=== PATIENT | female | born 1975 | race Caucasian/White ===

== ENCOUNTER 2022-01-13 00:23 | Day surgery (SDC) | payer OTHER, SELFPAY ==
[2022-01-01 10:58] VITALS: BMI 32.8
[2022-01-01 11:17] VITALS: BMI 32.8
--- NOTE | 2022-01-08 14:43 | PM.HPGS ---
History of Present Illness History of Present Illness Consent: Risks, benefits, and alternatives have been discussed and questions answered. Patient agrees to proceed with procedure. Chief complaint: colitis Narrative: Suma Cannon is a 46 year old female was referred because of diarrhea and abdominal pain and abnormal CT scan. She was recently seen in emergency room were she had presented because of right lower quadrant pain and diarrhea. A CT scan showed diffuse colitis throughout the colon. her symptoms had come on abruptly in early October. She still has loose stools whenever she has a bowel movement which could be once every couple days or even 3 or 4 times in 1 day. She denies seeing blood her stools. Review of Systems Review of Systems: All systems reviewed & are unremarkable except as noted in HPI and below PMFSH Past Medical History Medical History HTN (hypertension) Obesity Social History Social History Drinks per week: 7 Substance use: never Substance use type: does not use Living arrangements: with family Meds Home Medications and Allergies Home Medications Medication Instructions Recorded Confirmed Type citalopram 20 mg tablet 20 mg PO DAILY 01/01/22 01/13/22 History lisinopril 20 mg tablet 20 mg PO DAILY 01/01/22 01/13/22 History Allergies Allergy/AdvReac Type Severity Reaction Status Date / Time amoxicillin Allergy Intermediate Hives Verified 01/13/22 08:19 Exam Const: General: alert Orientation/consciousness: patient oriented x3 Resp: Auscultation: clear to auscultation bilaterally Cardio: Rhythm: regular rhythm GI: GI Palp: Yes Soft to palpation and No Tenderness to palpation present (GI) Neuro: General: patient oriented x3 Assessment and Plan Assessment and plan (1) Chronic diarrhea: Code(s): K52.9 - Noninfective gastroenteritis and colitis, unspecified Status: Acute Assessment and Plan: Colonoscopy with possible biopsy or polypectomy or cautery or injection of substances.
--- NOTE | 2022-01-11 11:28 | WPDANESEPPF ---
Anes - Initial Pre Proc Eval Procedure: Operation Date: 01/13/22 09:30 Proposed Procedures p Colonoscopy - Honorio Ivan MD Date/Time: 01/11/22 11:28 Surgeon: Honorio Ivan MD Pre Op Diagnosis: colitis Patient Data Age: 46 Gender: F Height: 1.57 m Weight: 81.6 kg Allergies Allergy/AdvReac Type Severity Reaction Status Date / Time amoxicillin Allergy Verified 02/04/11 12:55 Home Medications Medication Instructions Recorded Confirmed Type citalopram 20 mg tablet 20 mg PO DAILY 01/01/22 01/01/22 History lisinopril 20 mg tablet 20 mg PO DAILY 01/01/22 01/01/22 History Patient hx anesthesia problems: none Family hx anesthesia problems: none Results Review: All pre-operative results and documents have been reviewed as part of the pre-operative evaluation. [facility] Past Medical History Medical History (Updated 01/11/22 @ 11:28 by Isaac Bonilla MD) HTN (hypertension) Obesity Social History Social History Drinks per week: 7 Substance use: never Substance use type: does not use Living arrangements: with family Anes - Eval Final PreProcedure Day of Procedure 01/11/22 11:28 Patient weight: obese Heart: regular rate and rhythm Lungs: clear to auscultation and normal air movement Airway: Mallampati scale class II Neurological: alert and oriented Last oral intake: >/= 8 hours ASA classification: III Emergent: no Anesthetic plan: proceed Anesthesia type and monitoring: general GIVS Results Review: All pre-operative results and documents have been reviewed as part of the pre-operative evaluation. Informed Consent: The patient's anesthetic plan and its attendant risks and benefits were discussed with the patient/family/POA. Questions were solicited and answers provided to the satisfaction of the patient/family/POA.
[2022-01-13 08:16] VITALS: BP 125/95; PULSE 84; RESP 16; TEMP 36.3; O2SAT 97
[2022-01-13] MEDS: LACTATED RINGERS 1,000 ML 150 ML IV CONT (08:26)
--- NOTE | 2022-01-13 08:43 | SUR.PREOP ---
NO URINE PREG TEST NEEDED PER DR BRENNER
[2022-01-13 09:32] VITALS: BP 111/67; PULSE 62; RESP 17; O2SAT 98
[2022-01-13 09:42] VITALS: BP 107/72; PULSE 62; RESP 16; O2SAT 99
[2022-01-13 09:51] VITALS: BP 127/84; PULSE 60; RESP 16; O2SAT 100
== END 2022-01-13 09:58 | disposition home or self-care (01) ==
PROVIDERS: PCP Physician Assistant; Referring Provider Registered Nurse; Visit Provider Internal Medicine Gastroenterology
PROC: 0DJD8ZZ Inspection of Lower Intestinal Tract, Via Natural or Artificial Opening Endoscopic (ICD-10-PCS; CPT 45378; principal; 2022-01-13 09:30)
DX: R19.7 Diarrhea, unspecified (principal); I10 Essential (primary) hypertension; E66.9 Obesity, unspecified; Z68.33 Body mass index [BMI] 33.0-33.9, adult
CPT/HCPCS: 45380; 88305; J2704; J7120

== ENCOUNTER 2024-11-16 10:47 | Outpatient (CLI) | payer OTHER, SELFPAY ==
--- OUTSIDE RECORDS SUMMARY | 2024-11-16 11:39 | XMS_ITS | Clinical Summary ---
Author Organization Yasmin Matt [facility] Address [address] [place] [address] Phone Care Team Providers Care Pulmonary Care Nurse Name Role Phone Unavailable Primary Care Provider Unavailabl e Allergies Active Allergy Reactions Criticality Noted Date Comments Amoxicillin Rash Low 06/29/2009 Medications No known medications Active Problems Patient Care Coordination No te Formatting of this note migh t be different from the original. Primary Care: No primary provider on file. Referring Provider: [place] [address] Other: Problem Noted Date Diagnosed Date Lump or mass in breast 06/29/2009 Family History Medical History Relation Name Comments Cancer Brother Relation Name Status Comments Brother Social History Tobacco Use Types Packs/Day Years Used Date Smoking Tobacco: Every Day Comments:once in awhile Alcohol Use Standard Drinks/Week Comments Yes 0 (1 standard drink = 0.6 oz pur e alcohol) moderate Comments No Sex and Gender Information Value Date Recorded Sex Assigned at Not on file Legal Sex Female 5:53 AM [employer] Gender Identity Not on file Sexual Orientation Not on file Last Filed Vital Signs Vital Sign Reading Time Taken Comments Blood Pressure 142/92 06/29/2009 11:14 AM CDT Pulse - - Temperature - - Respiratory Rate - - Oxygen Saturation - - Inhaled Oxygen Concentration - - Weight 70.8 kg (156 lb) 06/29/2009 11:14 AM CDT Height 160 cm (5' 3) 06/29/2009 11:14 AM CDT Body Mass Index 27.63 06/29/2009 11:14 AM CDT Plan of Treatment Health Maintenance Due Date Last Done Comments DTAP/TDAP/TD VACCINES (1 - Tdap) 02/01/1992 HEPATITIS B VACCINES (1 of 3 - 19+ 3-dose series) 02/01/1992 HPV/Cotest (21-29) 1994 CERVICAL CANCER SCREENING 2003 HPV/Cotest (30-65) 2003 PAP SMEAR 2003 BREAST CANCER SCREENING 2013 04/06/19 10, 12/04/2008, 04/16/2006 COLORECTAL SCREENING 2018 Colorectal Cancer Screening 2018 FIT-DNA Q 3 years 2018 FIT/FOBT Q 1 year 2018 Flex Sig/CT Colonography Q 5 years 2018 ZOSTER VACCINE (1 of 2) 2023 INFLUENZA VACCINE (#1) 2024 Procedures Procedure Name Priority Date/Time Associated Diagnosis Comments MAMMO DIAGNOSTIC UNI LEFT W OR WO CAD Routine 04/06/2009 from Last 3 Months or Most Recently Relevant to Health Maintenance Results * MAMMO DIGITAL DIAG UNI LEFT (04/06/2009) Anatomical Region Laterality Modality Breast Left Other us Theresa Valencia MD MAMMO ORDERABLES Final Result from Last 3 Months or Most Recently Relevant to Health Maintenance Insurance [employer] PPO [id number] [employer] [facility] OPEN ACCESS
--- OUTSIDE RECORDS SUMMARY | 2024-11-16 11:39 | XMS_ITS | Clinical Summary ---
Author Organization [facility] Address [address] [place] [id number] Care Team Providers Care Wet Finisher Name Role Phone Jacki Campos NP Primary Care Provider [phone] Allergies Active Allergy Reactions Criticality Noted Date Comments Amoxicillin Rash Medium 06/29/2009 Medications buPROPion XL (WELLBUTRIN XL) 300 mg 24 hr tablet Take 300 mg by mouth daily 02/19/2019 Active hydroCHLOROthiaz jerrod (HYDRODIURIL) 25 mg tablet Take 25 mg by mouth daily 04/22/2019 Active lisinopriL (PRINIVIL,ZESTRI L) 20 mg tablet Take 20 mg by mouth daily 04/20/2019 Active Active Problems Problem Noted Date Diagnosed Date Breast pain 05/02/2019 Intertrigo 10/18/2014 Melanocytic nevus of trunk 10/18/2014 Pain in extremity 10/28/2011 Surgical History Surgery Date Site/Laterality Comments SECTION Medical History Medical History Date Comments Hypertension Family History Medical History Relation Name Comments Leukemia Brother Skin cancer Maternal Grandfather Family history of skin cancer - Relation: Grandfather (Added by TW Conv) Leukemia Other 1 Family history of leukemia - (Added by TW Conv) Leukemia Other 2 Family history of leukemia - (Added by TW Conv) Skin cancer Other 3 Family history of skin cancer - (Added by TW Conv) Relation Name Status Comments Brother Maternal Grandfather Other 1 Other 2 Other 3 Social History Tobacco Use Types Packs/Day Years Used Date Smoking Tobacco: Former Smokeless Tobacco: Never Alcohol Use Standard Drinks/Week Comments Yes 0 (1 standard drink = 0.6 oz pur e alcohol) AUDIT-C Answer Date Recorded Q1: How often do you have a drink containing alc ohol? 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 Gender Identity Female 04/15/2019 3:25 PM EXHIBITION ORGANISER Sexual Orientation Not on file Obstetrics History Last Filed Vital Signs Vital Sign Reading Time Taken Comments Blood Pressure - - Pulse - - Temperature - - Respiratory Rate - - Oxygen Saturation - - Inhaled Oxygen Concentration - - Weight 81.6 kg (180 lb) 05/02/2019 12:11 PM CDT Height 157.5 cm (5' 2) 05/02/2019 12:11 PM CDT Body Mass Index 32.92 05/02/2019 12:11 PM CDT Plan of Treatment Not on [place] [address] [place] [address] CHOICE PLUS [employer] [facility] CHOICE PLUS Care Teams Wet Finisher Relationship Specialty [place] [id number] [address] [id number] PCP - General Family Practice 04/15/19
[2024-11-17 07:09] LABS: FSH 14.5 mIU/mL (.)
== END 2024-11-16 10:48 | disposition home or self-care (01) ==
LOC: ANHLAB 10:49
PROVIDERS: PCP Internal Medicine; Visit Provider Nurse Practitioner Family
DX: Z78.0 Asymptomatic menopausal state (principal)
CPT/HCPCS: 83001